=== PATIENT | female | born 1945 | race Caucasian/White ===

== ENCOUNTER 2020-11-08 15:55 | Outpatient (CLI) | payer OTHER | END 2020-11-08 15:56 | disposition home or self-care (01) | LOC: EMS 15:55 | DX: S81.812A Laceration without foreign body, left lower leg, initial encounter (principal); W01.198A Fall on same level from slipping, tripping and stumbling with subsequent striking against other object, initial encounter; Y92.838 Other recreation area as the place of occurrence of the external cause | CPT/HCPCS: A0425; A0429 ==

== ENCOUNTER 2020-11-08 16:04 | Emergency (ER) | payer OTHER ==
[2020-11-08 16:11] VITALS: BP 146/81
[2020-11-08] MEDS ORDERED: LIDOCAINE 1%-EPI 1:100000 20 ML MDV SUBQ STA (18:20)
--- NOTE | 2020-11-08 19:30 | ED Physician Documentation ---
History of Present Illness - Stated complaint Stated Complaint: GLF - Chief complaint Chief Complaint: Trauma Ext - History obtained from History obtained from: Patient - History of Present Illness Timing: Today Pain level max: 3 Pain level now: 2 - Additonal information Additional information: Patient is a 75-year-old female who was walking today when she tripped on a log causing a laceration to the left lower extremity. No head, neck, back pain. No loss of consciousness. Worse with palpation, better with rest. Tetanus up-to-date. No other injuries. Patient is not anticoagulated Review of Systems Ten Systems: 10 systems reviewed and negative Constitutional: denies: Fever, Chills Ears: denies: Ear pain Nose: denies: Rhinorrhea / runny nose, Congestion GI: denies: Abdominal Pain, Vomiting, Diarrhea Skin: denies: Rash Musculoskeletal: denies: Neck pain, Back pain Neurologic: denies: Headache, Head injury, LOC PD PAST MEDICAL HISTORY - Past Medical History Past Medical History: Yes Cardiovascular: Hypertension, Arrhythmia Musculoskeletal: Chronic back pain - Past Surgical History Past Surgical History: Yes General: Cholecystectomy HEENT: Cataracts, Tonsil/Adenoidectomy - Present Medications Home Medications: Ambulatory Orders Medication Instructions Recorded Confirmed Furosemide [Lasix] 20 mg PO DAILY 11/08/20 11/08/20 Losartan Potassium [Cozaar] 100 mg DAILY 11/08/20 11/08/20 Omeprazole Magnesium 20 mg DAILY 11/08/20 11/08/20 - Allergies Allergies/Adverse Reactions: Allergies Allergy/AdvReac Type Severity Reaction Status Date / Time codeine Allergy Nausea Verified 11/08/20 16:11 BP medications Allergy Rash Uncoded 11/08/20 16:11 - Social History Does the pt smoke?: No Smoking Status: Never smoker Does the pt have substance abuse?: No - Immunizations Immunizations are current?: Yes PD ED PE NORMAL - Vitals Vital signs reviewed: Yes - General General: Alert and oriented X 3, No acute distress - HEENT HEENT: Moist mucous membranes - Neck Neck: Supple, no meningeal sign - Cardiac Cardiac: RRR - Respiratory Respiratory: No respiratory distress, Clear bilaterally - Abdomen Abdomen: Soft, Non tender, Non distended - Derm Derm: Warm and dry - Extremities Extremities: Other (4 x 4 centimeter flap laceration to the left lower extremity. Neurovascular intact. Subcutaneous, avulsion.) - Neuro Neuro: Alert and oriented X 3 Results - Vitals Vitals: Vital Signs - 24 hr 11/08/20 11/08/20 16:07 19:34 Temperature 36.2 C L Heart Rate 64 Respiratory 16 18 Rate Blood Pressure 146/81 H O2 Saturation 94 Oxygen O2 Source Room air Procedures - Laceration (location) LLE Length in cm: 8 Wound type: Flap, Into subcut fat, Clean Neurovascular status: Sensory intact, Motor intact, Vascular intact Tendon involvement: Tendon intact Anesthesia: Lidocaine 1% with epi Wound preparation: Irrigated copiously NS, Wound explored, To the base Skin layer closure: Gianfranco Other: Patient tolerated well, No complications, Neurovascular intact, Dressing applied, Tetanus UTD PD MEDICAL DECISION MAKING - ED course Complexity details: reviewed results, re-evaluated patient, considered differential, d/w patient ED course: Laceration repaired with gianfranco. Tolerated well. 18 gianfranco were used. Tetanus up-to-date. Patient counseled that the skin flap may necrosis and that she may end up needing wound care. Recommend that when she returned to [place] tomorrow she contact her doctor for referral to wound care. Warnings of infection and instructions on wound care given at bedside. Also counseled on how to minimize scarring. Patient counseled regarding signs and symptoms for which I believe and urgent re-evaluation would be necessary. Patient with good understanding of and agreement to plan and is comfortable going home at this time This document was made in part using voice recognition software. While efforts are made to proofread this document, sound alike and grammatical errors may occur. Departure - Departure Disposition: 01 Home, Self Care Clinical Impression: Laceration Condition: Good Instructions: ED Laceration Ext Sutr Stap Tape Follow-Up: Provider,Other [Primary Care Provider] - Within 1 week Comments: Please follow up with your doctor for further care. Your gianfranco should be removed in about 14 days. Your wound may need a referral to wound care from your primary care doctor. Keep the wound clean. Return if you notice redness, swelling, or drainage from a wound. Discharge Date/Time: 11/08/20 19:37
== END 2020-11-08 19:37 | disposition home or self-care (01) ==
LOC: ED 16:04
DX: S81.812A Laceration without foreign body, left lower leg, initial encounter (principal); W22.09XA Striking against other stationary object, initial encounter; Y93.01 Activity, walking, marching and hiking
CPT/HCPCS: 12004; 99282; 99283